=== PATIENT | male | born 1945 | race Caucasian/White ===

== ENCOUNTER → 2020-09-13 12:30 | Outpatient (BNVA) | payer OTHER, SELFPAY | PROVIDERS: Visit Provider Orthopaedic Surgery | DX: M19.011 Primary osteoarthritis, right shoulder (principal) | CPT/HCPCS: 99212 ==

== ENCOUNTER → 2021-01-21 10:11 | Outpatient (BNVA) | payer OTHER, SELFPAY | PROVIDERS: Visit Provider Physician Assistant | DX: M19.011 Primary osteoarthritis, right shoulder (principal) | CPT/HCPCS: 99212 ==

== ENCOUNTER 2021-01-26 05:55 | Day surgery (SDC) | payer OTHER, SELFPAY ==
--- NOTE | 2021-01-18 | ECG_ITS ---
Test Reason : preop Blood Pressure : / mmHG Vent. Rate : 059 BPM Atrial Rate : 059 BPM P-R Int : 296 ms QRS Dur : 110 ms QT Int : 436 ms P-R-T Axes : 032 -56 007 degrees QTc Int : 431 ms Sinus bradycardia with 1st degree A-V block Left anterior fascicular block Poor R wave progression Abnormal ECG When compared with ECG of 26-MAR-2019 12:36, No significant change was found Referred By: Unique Smith Electronically Signed By:OTYIN FRANCISCO MD
[2021-01-18 09:49] VITALS: BMI 30.2
[2021-01-18 11:50] VITALS: BP 129/87; PULSE 59; RESP 16; O2SAT 94
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
[2021-01-18 13:21] LABS: Hematocrit 50.7 % (42.0-52.0); Hemoglobin 16.3 g/dl (14.0-18.0); Mean Corpuscular HGB Conc 32.1 g/dl (31.0-36.0); Mean Corpuscular Volume 96.4 fL (80.0-98.0); Mean Platelet Volume 9.1 fL (9.4-12.4); Platelet Count 244 X10*3/uL (160-400); Red Blood Count 5.26 X10*6/uL (4.60-5.80); Red Cell Distribution Width 13.2 % (11.0-16.0)
[2021-01-18 14:17] LABS: Anion Gap 13 (12-20); Blood Urea Nitrogen 21 mg/dL (9-16); Calcium 9.9 mg/dL (8.4-10.2); Carbon Dioxide 29 mmol/L (22-29); Chloride 106 mmol/L (96-108); Creatinine Clr Calc Pharmacy 53.2; Estimated Glomerular Filt Rate 51; Glucose Random 106 mg/dL (60-115); Potassium 4.8 mmol/L (3.3-5.1); Sodium 143 mmol/L (135-145)
[2021-01-26] VITALS (40 sets, daily range): BP systolic 95–151; BP diastolic 49–81; PULSE 58–89; RESP 13–35; TEMP 36–36.8; O2SAT 72–96
--- NOTE | ~2021-01-26 | XR_ITS ---
EXAMINATION: XR CHEST CLINICAL INFORMATION: Low oxygen saturation COMPARISON: None TECHNIQUE: Frontal view of the chest was obtained. FINDINGS: The cardiac silhouette is upper normal in size. Hilar and mediastinal contours are unremarkable. There is elevation of the right hemidiaphragm. The lungs are clear. There is no pleural effusion or pneumothorax. There are degenerative changes of the spine. XR/XR chest 1V IMPRESSION: Upper normal-size cardiac silhouette. Elevated right hemidiaphragm.
--- NOTE | ~2021-01-26 | XR_ITS ---
EXAMINATION: XR CHEST CLINICAL INFORMATION: Low saturation COMPARISON: Earlier on same day TECHNIQUE: AP portable view of the chest was obtained. FINDINGS: There is elevation of the right hemidiaphragm. There is no evidence of acute parenchymal disease, pneumothorax, or pleural effusion. Heart upper limits of normal in size. No evidence of pulmonary edema. XR/XR chest 1V IMPRESSION: Elevated right hemidiaphragm. No acute disease.
[2021-01-26] MEDS: Lactated Ringers 1,000 ML 100 ML IVCONT (06:35)
--- NOTE | 2021-01-26 10:16 | P.BOP_ITS ---
Brief Operative Note Date of Service: 01/26/21 Pre-op diagnosis: right shoulder labral tear and sub acromial bursitis Post-op diagnosis: other (1) subscapularis tear 2) supraspinatus tear 3) sub acromial bursitis 4) labral tear 5) biceps tendon rupture 6) glenouhumeral OA) Procedure: Arthroscopic subscapularis repair Arthroscopic supraspinatus tear Circumferential labral debridement Sub acromial impingement Implants: Carpenter and nephew 4.75 double loaded suture anchor x1 and 5.0 knotless x2 Surgeon: Luis A Demarco MD Anesthesia: GETA and regional Was an Boring Mill Operator used for this Procedure?: No Estimated blood loss (mL): 20 IV fluids (mL): 1,000 Pathology: none sent Condition: stable Disposition: PACU
--- NOTE | 2021-01-26 10:16 | MHC.SHP ---
Pre-Procedural Eval Section A Date of Service: 01/26/21 The patient is an INPATIENT: No Changes since office visit: Yes Patient answered all questions; No Cold of Flu in the past 2 weeks, No New Medical Problems and No Changes in Medication The History & Physical has been completed within 30 days and I have reviewed it.: Yes Section B Chief Complaint: Loose Body in Right Shoulder Allergies: Allergies Allergy/AdvReac Type Severity Reaction Status Date / Time SEASONAL ALLERGIES Allergy Unknown RUNNY NOSE Uncoded 01/21/21 10:25 Plan I have reviewed the history and physical and performed a pertinent physical examination on my patient. No changes have occurred unless specified.
--- NOTE | 2021-01-26 10:25 | P.OP_ITS ---
Operative Note Operative Note Date of Service: 01/26/21 Narrative: Pre-op diagnosis: right shoulder labral tear and sub acromial bursitis Post-op diagnosis: other (1) subscapularis tear 2) supraspinatus tear 3) sub acromial bursitis 4) labral tear 5) biceps tendon rupture 6) glenouhumeral OA) Procedure: Arthroscopic subscapularis repair Arthroscopic supraspinatus tear Circumferential labral debridement Sub acromial impingement Implants: Mares and nephew 4.75 double loaded suture anchor x1 and 5.0 knotless x2 Surgeon: Luis A Demarco MD Anesthesia: GETA and regional Was an Senior Administrator Support used for this Procedure?: No Estimated blood loss (mL): 20 IV fluids (mL): 1,000 Pathology: none sent Condition: stable Disposition: PACU Procedure in detail: Patient was brought to the operating room and placed the the beach chair position. All bony prominences were well padded and the limb was prepped and draped in standard sterile fashion. A time out was called to identify proper site, proper procedure and proper surgeon. IV antibiotics per weight were administered. I began by making a posterolateral stab incision with a 15 blade. A blunt trochar was placed into the glenohumeral joint and I insufflated the joint with saline and a 30 degree arthroscope was placed. I established an outs lauro- in anterior portal just distal to the torn biceps tendon. I then began my inspection of the glenohumeral joint. There were grade 4 changes of the anterior 30% of the glenoid and grade 3 and 4 changes of the humeral head. The biceps was ruptured and there was scattered debris and calcified tissue including the labrrum .I circumeferentially debrided the labrum and examined the subscapularis which was about 75% torn at it humeral insertion. I debrided the attachment site and placed a fiber tape and a looped suture through the mobile torn portion of the subscap. I then dunked this into the inertion site with a 5.0 knotless mares and nephew anchor with the arm internally rotated. I then removed the trochar and entered the subacromial space. A direct lateral portal was then established and I performed a bursectomy. There was florid bursal tissue and diminished subacromial space. There was a contained small full thickness defect of the supraspinatus insertion. An additional lateral portal was made. I debrided the bone down to bleeding bone with a flex and then placed a 4.75 medial row double loaded anchor and brought a limb of each suture through the cuff with a Scorpion device. These limbs were then tied to a lateral 5.o knotless anchor. I had excellent reproduction of the normal anatomy. I then performed a 6 mm sub acromial decompression. Once I was satisfied with the repa ir final images were captured and I removed all instrumentation. Portals were closed with nylon. Patient was placed in an abduction sling, extubated and brought to the recovery room in stable condition. There were no known complications.
[2021-01-26] MEDS: oxyCODONE HCl Immed Release 5 MG TABLET PO (12:59)
--- NOTE | 2021-01-26 17:07 | PC.NURSE ---
dr. ledesma at bedside to evaluate patient. made awre patient continues to clear throat, able to safely swallow. pulse ox variable 87-90% on 4l nc, 13 liters shovel mask. utilized incentive spirometer good effort educated in use of I/S 1000 ml attained x3
--- NOTE | 2021-01-26 17:31 | PC.NURSE ---
1730 dr. turner at bedside to evaluate patient respiratory status. aware pulse ox 86-88% while dozing in naps. hx chelsea on 15l shovel mask and 4l nasal cannula. nsr 70's. dr. turner has reviewed patient status with dr. esteves. no plan for bipap or icu at this time. call to RT for ventimask placement
--- NOTE | 2021-01-26 17:41 | PC.NURSE ---
RT at bedside to place patient on ventimask 55% TRIAL. DR. ALVARADO AT BEDSIDE DISCUSSING WITH PATIENT STATUS AND RESPRATORY STATUS.
[2021-01-26 18:13] LABS: ABG Base Excess 0.6 mmol/L; ABG HCO3 25 mmol/L (22-26); ABG pCO2 41 mmHg (32-45); ABG pH 7.39 (7.35-7.45); ABG pO2 44 mmHg (83-108)
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
[2021-01-26 19:41] LABS: COVID-19 Test Negative (Negative)
[2021-01-26] MEDS: Atorvastatin Calcium 20 MG TABLET PO (21:59)
[2021-01-26] MEDS: Acetaminophen 325 MG TABLET 650 MG PO (22:01)
[2021-01-27] VITALS (14 sets, daily range): BP systolic 108–132; BP diastolic 50–76; PULSE 63–79; RESP 13–69; TEMP 36.4–37; O2SAT 90–96
[2021-01-27] MEDS: oxyCODONE HCl Immed Release 5 MG TABLET PO (02:08)
[2021-01-27 05:44] LABS: ABG Refer to POC result
[2021-01-27 05:59] LABS: Albumin Level 3.8 g/dL (3.5-5.0)
[2021-01-27] MEDS: lisinopriL 20 MG TABLET PO (08:33)
[2021-01-27] MEDS: Clopidogrel Bisulfate 75 MG TABLET PO (08:34)
[2021-01-27 08:37] LABS: MANUAL DIFF FLAG NO
[2021-01-27 08:38] LABS: VBG Base Excess 5.2 mmol/L; VBG HCO3 31 mmol/L (22-26); VBG pCO2 53 mmHg; VBG pH 7.38 (7.32-7.43); VBG pO2 40 mmHg
[2021-01-27 08:39] LABS: Venous Blood Gas Refer to POC result
[2021-01-27 08:41] LABS: Basophils Percent Auto 0.4 % (0-2); Eosinophils Percent Auto 0.1 % (0-4); Hematocrit 43.5 % (42.0-52.0); Hemoglobin 14.1 g/dl (14.0-18.0); Imm Gran Abs Auto 0.03 X10*3/uL (0.00-0.03); Imm Gran Pct Auto 0.3 % (0.0-0.4); Lymphocytes Absolute Auto 0.7 X10*3/uL (1.2-4.9); Lymphocytes Percent Auto 8.1 % (20-40); Mean Corpuscular HGB Conc 32.4 g/dl (31.0-36.0); Mean Corpuscular Hemoglobin 31.6 pg (27.0-33.0); Mean Corpuscular Volume 97.5 fL (80.0-98.0); Mean Platelet Volume 9.2 fL (9.4-12.4); Monocytes Absolute Auto 1.3 X10*3/uL (0.1-1.2); Monocytes Percent Auto 14.7 % (2-11); Neutrophils Absolute Auto 6.8 x10*3/uL (2.0-8.3); Neutrophils Percent Auto 76.4 % (45-73); Platelet Count 178 X10*3/uL (160-400); Red Blood Count 4.46 X10*6/uL (4.60-5.80); Red Cell Distribution Width 13.2 % (11.0-16.0)
--- NOTE | 2021-01-27 08:56 | P.DS_ITS ---
DS: Providers Provider Date of Service: 01/31/21 Date of admission: 01/26/21 17:17 Primary care physician: Aundrea Arredondo MD DS: Diagnosis Discharge Diagnosis (1) Acute respiratory failure with hypoxia: (2) Osteoarthritis of right shoulder: Status: Acute (3) SUNDEEP (obstructive sleep apnea): DS: Summary Hospital Course Hospital Course: 75-year-old gentleman status post elective shoulder debridement on 01/26/2021 requiring anterior scalene block with prolonged anesthetic effect postprocedure resulting in poor diaphragmatic function requiring monitoring in the intensive care unit with BiPAP support overnight. Patient with complete resolution of his diaphragmatic dysfunction overnight, titrated off BiPAP and to room air. Evaluated by Orthopedic surgery provide in the morning and discharged home. Time Spent with Patient Time attestation: Total time spent providing and/or coordinating discharge services: Discharge coordination time: Less than 30 minutes Quality: Stroke Does the patient have a stroke diagnosis?: No Physical Exam Vital Signs: Vital Signs: Last Vital Signs Temp 97.5 F 01/27/21 08:00 Pulse 74 01/27/21 08:33 Resp 17 01/27/21 08:00 BP 131/76 01/27/21 08:33 Pulse Ox 94 01/27/21 08:00 Oxygen Flow Rate 15 01/26/21 18:10 BMI result Body Mass Index 30.2 Const: General: cooperative, healthy appearing and no acute distress Resp: Effort & Inspection: normal respiratory effort and able to speak in complete sentences Cardio: Rate: regular rate Peripheral pulses: Peripheral pulses 2+ throughout GI: Palpation (GI): Soft to palpation Skin: General skin exam: no rashes or lesions noted Extrem: Other: right shoulder bandage c/d/i. sling intact. Radial nerve fxn intact. DS: Data Data Completed and Pending Labs on day of discharge: Laboratory Results - last 24 hr 01/26/21 01/26/21 01/27/21 18:07 19:18 05:17 WBC RBC Hgb Hct MCV MCH MCHC RDW Plt Count MPV Immature Gran % (Auto) Neut % (Auto) Lymph % (Auto) [place] % (Auto) Eos % (Auto) Baso % (Auto) Lymph # (Auto) [place] # (Auto) Eos # (Auto) Baso # (Auto) Abs Immat Gran (auto) Absolute Neuts (auto) Absolute Nucleated RBC Nucleated RBC % (auto) O2 Saturation 69.0 ABG pH at Pt Temp 7.39 ABG pCO2 at Pt Temp 41 ABG pO2 at Pt Temp 44 L* ABG HCO3 25 ABG Base Excess (Actual) 0.6 VBG pH VBG pCO2 VBG pO2 VBG HCO3 VBG O2 Saturation VBG Base Excess Albumin 3.8 COVID-19 ([facility]ORY) Negative COVID-19 Clin Com See Note 01/27/21 01/27/21 08:29 08:33 WBC 9.0 RBC 4.46 L Hgb 14.1 Hct 43.5 MCV 97.5 MCH 31.6 MCHC 32.4 RDW 13.2 Plt Count 178 D MPV 9.2 L Immature Gran % (Auto) 0.3 Neut % (Auto) 76.4 H Lymph % (Auto) 8.[address] % (Auto) 14.7 H Eos % (Auto) 0.1 Baso % (Auto) 0.4 Lymph # (Auto) 0.[address] [place] # (Auto) 1.3 H Eos # (Auto) 0.0 Baso # (Auto) 0.0 Abs Immat Gran (auto) 0.03 Absolute Neuts (auto) 6.8 Absolute Nucleated RBC 0.000 Nucleated RBC % (auto) 0.0 O2 Saturation ABG pH at Pt Temp ABG pCO2 at Pt Temp ABG pO2 at Pt Temp ABG HCO3 ABG Base Excess (Actual) VBG pH 7.38 VBG pCO2 53 VBG pO2 40 VBG HCO3 31 H VBG O2 Saturation 62.0 VBG Base Excess 5.2 Albumin COVID-19 ([facility]) COVID-19 Clin Com Discharge Plan Discharge Patient Disposition: Home, Self-Care Referrals: Bobbi Antonio PA-C [Physician Fiber Optic Central Office Installer] - 1 Week (PT 01/31/21 at 2:00pm Post op in the ortho office 02/07/21 at 9:30am ) Aundrea Arredondo MD [Primary Care Provider] - 1 Week Discharge Medications: Continued lisinopril 20 mg Tablet 20 mg PO DAILY RF: 0 clopidogrel 75 mg Tablet 75 mg PO DAILY RF: 0 simvastatin 40 mg Tablet 40 mg PO DAILY RF: 0 Advil PM 200-38 mg Tablet 1 cap PO BEDTIME PRN (Reason: Pain) RF: 0 Discharge Orders: Discharge Order (Routine); Ordered 01/27/21 Ordered By: Kuldip Rushing Patient Instructions: Rotator Cuff Tear Repair (DC), Rotator Cuff Tear Repair (GEN) Activity Restrictions/Additional Instructions: Wear sling at all times, including sleeping-OK to remove for pendulum exercises throughout the day No lifting-OK to move arm at elbow and wrist Do not bathe or shower--OK to remove bandage after day 3, cover with bandaids. Take Percocet 5/325mg tabs 1 tab by mouth every 4-6 hours as needed Call [facility] with any questions or concerns. Follow up with orthopedics in 7-10 days post op Discharge Date/Time: 01/27/21 10:40
[2021-01-27 09:23] LABS: Anion Gap 12 (12-20); Blood Urea Nitrogen 21 mg/dL (9-16); Calcium 9.1 mg/dL (8.4-10.2); Carbon Dioxide 29 mmol/L (22-29); Chloride 106 mmol/L (96-108); Creatinine Clr Calc Pharmacy 57.4; Estimated Glomerular Filt Rate 55; Glucose Random 139 mg/dL (60-115); Magnesium 1.8 mg/dL (1.6-2.6); Phosphorus 2.4 mg/dL (2.7-4.5); Potassium 4.5 mmol/L (3.3-5.1); Sodium 142 mmol/L (135-145)
--- NOTE | 2021-01-27 10:05 | MHC.CM.PN ---
Met with pt to discuss d/c planning: pt resides with his s.o., drives, has no services and does not use any adaptive equipment. Pt states his medical care is delivered through the [facility]. Pt states he also has two brothers that can assist him and who will transport pt home today. HCP at home: No additional service needs are identified at this time.
--- NOTE | 2021-01-27 13:24 | PC.NURSE ---
PT NOW STABLE AND OFF OXYGEN. PT DISCHARGED, ORTHO PROVIDED DISCHARGE INSTRUCTIONS/TEACHING AND PROVIDED PRESCRIPTIONS. RN PROVIDED DISCHARGE TEACHING AND PAPERWORK. PT RECEIVED ALL PAPERWORK, BELONGINGS, AND WAS ESCORTED OFF UNIT BY TECH AND BROTHER VIA WHEELCHAIR.
--- NOTE | 2021-01-27 13:36 | HO.POSTANES ---
Post Anesthesia Evaluation Post Anesthesia Evaluation Vital Signs: Vital Signs Temp Pulse Resp BP Pulse Ox 01/27/21 10:00 78 15 132/68 90 L 01/27/21 09:00 67 21 H 125/65 93 01/27/21 08:33 74 131/76 01/27/21 08:00 97.5 F 68 17 131/76 94 01/27/21 07:00 68 19 108/70 94 01/27/21 05:59 69 H 93 01/27/21 05:53 96 01/27/21 05:45 67 16 119/68 95 01/27/21 05:00 71 16 121/61 92 01/27/21 04:00 97.8 F 65 16 118/50 L 91 L 01/27/21 03:00 64 13 120/63 94 01/27/21 02:00 79 17 92 Anesthesia: Nerve Block and General Endotracheal-GETA Mental Status: Awake Pain Control: Satisfactory Nausea/Vomiting: None Hydration: Adequate Anesthesia-Related Issues: No Anes. 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 Patient improving as local anesthesia is nasir off.)
--- NOTE | 2021-01-27 14:55 | P.DS_ITS ---
DS: Providers Provider Date of Service: 01/27/21 Primary care physician: Aundrea Arredondo MD DS: Diagnosis Discharge Diagnosis (1) Acute respiratory failure with hypoxia: Status: Acute (2) Osteoarthritis of right shoulder: Status: Acute (3) SUNDEEP (obstructive sleep apnea): Status: Acute DS: Summary Hospital Course Hospital Course: 75-year-old gentleman status post elective shoulder debridement on 01/26/2021 requiring anterior scalene block with prolonged anesthetic effect postprocedure resulting in poor diaphragmatic function requiring monitoring in the intensive care unit with BiPAP support overnight. Patient with complete resolution of his diaphragmatic dysfunction overnight, titrated off BiPAP and to room air. Evaluated by Orthopedic surgery provide in the morning and discharged home. Status at Discharge Functional status at discharge: independent ambulation Time Spent with Patient Time attestation: Total time spent providing and/or coordinating discharge services: Discharge coordination time: Less than 30 minutes Quality: Stroke Does the patient have a stroke diagnosis?: No Physical Exam Vital Signs: Vital Signs: Last Vital Signs Temp 97.5 F 01/27/21 08:00 Pulse 78 01/27/21 10:00 Resp 15 01/27/21 10:00 BP 132/68 01/27/21 10:00 Pulse Ox 90 L 01/27/21 10:00 Oxygen Flow Rate 15 01/26/21 18:10 BMI result Body Mass Index 30.2 Const: General: no acute distress, alert and awake Eyes: Sclerae: sclerae normal EOM: EOMs intact bilaterally Neck: Neck: Yes no lymphadenopathy, Yes trachea midline and Yes supple Resp: Effort & Inspection: normal respiratory effort and no respiratory distress Auscultation: clear to auscultation bilaterally Cardio: Rate: regular rate Rhythm: regular rhythm Heart sounds: no gallops, no murmurs and no rubs GI: Palpation (GI): Soft to palpation and Other GI palpation findings present ( Nontender) Auscultation: normal bowel sounds Extrem: General: Yes no pedal edema, No clubbing, No cyanosis and Yes other ( right shoulder with surgical dressing and immobilized) DS: Data Data Completed and Pending Labs on day of discharge: Laboratory Results - last 24 hr 01/26/21 01/26/21 01/27/21 18:07 19:18 05:17 WBC RBC Hgb Hct MCV MCH MCHC RDW Plt Count MPV Immature Gran % (Auto) Neut % (Auto) Lymph % (Auto) [place] % (Auto) Eos % (Auto) Baso % (Auto) Lymph # (Auto) [place] # (Auto) Eos # (Auto) Baso # (Auto) Abs Immat Gran (auto) Absolute Neuts (auto) Absolute Nucleated RBC Nucleated RBC % (auto) O2 Saturation 69.0 ABG pH at Pt Temp 7.39 ABG pCO2 at Pt Temp 41 ABG pO2 at Pt Temp 44 L* ABG HCO3 25 ABG Base Excess (Actual) 0.6 VBG pH VBG pCO2 VBG pO2 VBG HCO3 VBG O2 Saturation VBG Base Excess Sodium Potassium Chloride Carbon Dioxide Anion Gap BUN Creatinine Estim Creat Clear Calc Estimated GFR Random Glucose Calcium Phosphorus Magnesium Albumin 3.8 COVID-19 ([facility]) Negative COVID-19 Clin Com See Note 01/27/21 01/27/21 01/27/21 08:29 08:29 08:33 WBC 9.0 RBC 4.46 L Hgb 14.1 Hct 43.5 MCV 97.5 MCH 31.6 MCHC 32.4 RDW 13.2 Plt Count 178 D MPV 9.2 L Immature Gran % (Auto) 0.3 Neut % (Auto) 76.4 H Lymph % (Auto) 8.1 L [place] % (Auto) 14.7 H Eos % (Auto) 0.1 Baso % (Auto) 0.4 Lymph # (Auto) 0.7 L [place] # (Auto) 1.3 H Eos # (Auto) 0.0 Baso # (Auto) 0.0 Abs Immat Gran (auto) 0.03 Absolute Neuts (auto) 6.8 Absolute Nucleated RBC 0.000 Nucleated RBC % (auto) 0.0 O2 Saturation ABG pH at Pt Temp ABG pCO2 at Pt Temp ABG pO2 at Pt Temp ABG HCO3 ABG Base Excess (Actual) VBG pH 7.38 VBG pCO2 53 VBG pO2 40 VBG HCO3 31 H VBG O2 Saturation 62.0 VBG Base Excess 5.2 Sodium 142 Potassium 4.5 Chloride 106 Carbon Dioxide 29 Anion Gap 12 BUN 21 H Creatinine 1.27 Estim Creat Clear Calc 57.4 Estimated GFR 55 Random Glucose 139 H Calcium 9.1 D Phosphorus 2.4 L Magnesium 1.8 Albumin COVID-19 ([facility]) COVID-19 Clin Com Discharge Plan Discharge Patient Disposition: Home, Self-Care Referrals: Bobbi Antonio PA-C [Physician Plant And Instrument Engineer] - 1 Week (PT 01/31/21 at 2:00pm Post op in the ortho office 02/07/21 at 9:30am ) Aundrea Arredondo MD [Primary Care Provider] - 1 Week Discharge Medications: Continued lisinopril 20 mg Tablet 20 mg PO DAILY RF: 0 clopidogrel 75 mg Tablet 75 mg PO DAILY RF: 0 simvastatin 40 mg Tablet 40 mg PO DAILY RF: 0 Advil PM 200-38 mg Tablet 1 cap PO BEDTIME PRN (Reason: Pain) RF: 0 Discharge Orders: Discharge Order (Routine); Ordered 01/27/21 Ordered By: Kuldip Rushing Patient Instructions: Rotator Cuff Tear Repair (DC), Rotator Cuff Tear Repair (GEN) Activity Restrictions/Additional Instructions: Wear sling at all times, including sleeping-OK to remove for pendulum exercises throughout the day No lifting-OK to move arm at elbow and wrist Do not bathe or shower--OK to remove bandage after day 3, cover with bandaids. Take Percocet 5/325mg tabs 1 tab by mouth every 4-6 hours as needed Call [facility] orthopedics with any questions or concerns. Follow up with orthopedics in 7-10 days post op Discharge Date/Time: 01/27/21 10:40
== END 2021-01-27 10:40 | disposition home or self-care (01) ==
LOC: HO.SSS 10:23 → HO.ICU 01-27 08:56
PROVIDERS: Anesthesiology; Nurse Practitioner; Registered Nurse Community Health; PCP Internal Medicine; Visit Provider Orthopaedic Surgery
PROC: (CPT 29805; principal; 2021-01-26 07:30)
DX: S43.491A Other sprain of right shoulder joint, initial encounter (principal); S46.011A Strain of muscle(s) and tendon(s) of the rotator cuff of right shoulder, initial encounter; X58.XXXA Exposure to other specified factors, initial encounter; M75.51 Bursitis of right shoulder; Y93.9 Activity, unspecified; Y92.9 Unspecified place or not applicable; Y99.9 Unspecified external cause status; M19.011 Primary osteoarthritis, right shoulder; G47.33 Obstructive sleep apnea (adult) (pediatric); J95.821 Acute postprocedural respiratory failure; Y83.8 Other surgical procedures as the cause of abnormal reaction of the patient, or of later complication, without mention of misadventure at the time of the procedure; Y92.238 Other place in hospital as the place of occurrence of the external cause; J30.2 Other seasonal allergic rhinitis; I10 Essential (primary) hypertension; E78.00 Pure hypercholesterolemia, unspecified; H81.10 Benign paroxysmal vertigo, unspecified ear; Z20.822 Contact with and (suspected) exposure to COVID-19; Z86.73 Personal history of transient ischemic attack (TIA), and cerebral infarction without residual deficits; Z87.891 Personal history of nicotine dependence; Z79.899 Other long term (current) drug therapy; Z79.01 Long term (current) use of anticoagulants
CPT/HCPCS: 29827; 29826; 29822; 36415; 71045; 80048; 82040; 82803; 83735; 84100; 85025; 85027; 87635; 93005; 94660; 94799; C1713; J0171; J0330; J0690; J2250; J2370; J2405; J3010

== ENCOUNTER → 2021-02-07 08:58 | Outpatient (BNVA) | payer OTHER, SELFPAY | PROVIDERS: PCP Internal Medicine; Visit Provider Physician Assistant | DX: Z98.890 Other specified postprocedural states (principal) | CPT/HCPCS: 99212 ==

== ENCOUNTER 2021-02-16 15:00 | Outpatient (RCR) | payer OTHER, SELFPAY ==
--- NOTE | 2021-02-01 10:54 | MHC.PT.EP ---
[facility] [place] Office [place] Office [place] Office [address] Sarah Boyer [address] [facility] [phone] F: [phone] F: [phone] F: [phone] F: [phone] Physical Therapy Plan of Care Date of Evaluation: Date of Surgery: 01/26/21 Diagnosis: Arthroscopic subscapularis repair Arthroscopic supraspinatus tear Circumferential labral debridement Sub acromial impingement (with subacromial decompression) Assessment: Pt is a 75yo M s/p R RTC repair along with subscap repair and subacromial decompression with Dr. Demarco on 01/26/21. He was admitted to the ICU for acute respiratory failure with hypoxia after procedure and was D/C home 1 day later. He denies any complications since being D/C home. He presents today with abduction pillow brace. He presents with current impairments in pain, decreased ROM, decreased strength, and impaired posture. He is a good candidate for skilled PT services to address current impairments per protocol each week. He will benefit from skilled PT services 2x/week for 16 weeks in order to progress per protocol in order to facilitate return to PLOF. Frequency and Duration: The patient will be seen 2x/week for 16 weeks Short Term Goals: Pt will be I with donning/doffing R abduction pillow brace Pt will be I with HEP to promote self management of symptoms Pt will demonstrate increased R shoulder flexion PROM to 115 deg 2-3 weeks per protocol Pt will demonstrate increased R shoulder ER at 45 deg ABD scapular plane to 0 degrees at 2-3 weeks per protocol Pt will achieve R shoulder ER at 45 degrees abduction to 30-40 degrees in 5-6 weeks per protocol Product Safety Technician Goals: Pt will demonstrate good postural awareness 80% of 3 consecutive PT sessions for decreased risk of re-injury in 6-8 weeks Pt will achieve R shoulder flexion to 180 degrees in 8-10 weeks per protocol Pt will achieve ER at 90 degrees abduction to 75-80 degrees in 8-10 weeks per protocol Pt will demonstrate R shoulder and periscapular strength at least 4/5 in 8-12 weeks per protocol to assist with functional tasks Pt will demonstrate full, non-painful ROM throughout R shoulder to promote functional use of RUE without compensation within 12-16 weeks per protocol Treatment Plan: Modalities to reduce pain, spasms and effusion. Manual therapy to restore motion and function. Therapeutic exercise to improve strength and flexibility. Neuromuscular re-education for posture and balance. Therapeutic activities to return to functional activities of daily living. Electronically signed by: Faith Malone, PT, DPT Please sign and return to therapist. Thank you for your referral.
--- NOTE | 2021-03-01 17:41 | MHC.PT.DC ---
[facility] [place] Office [place] Office [place] Office [address] Sarah Boyer [address] [phone] F: [phone] F: [phone] F: [phone] F: [phone] Physical Therapy Discharge Report Diagnosis: Arthroscopic subscapularis repair Arthroscopic supraspinatus tear Circumferential labral debridement Sub acromial impingement (with subacromial decompression) Date of Surgery: 01/26/21 Date of Evaluation: 01/31/21 Date of Discharge: 03/01/21 Treatments to Date: 5 Cancellations to Date: 3 No Shows to Date: 0 Discharge Status: Recommend MD Follow-up Discharge Summary: Pt is a 75yo M s/p R RTC repair along with subscap repair and subacromial decompression with Dr. Demarco on 01/26/21. Pts last attended PT visit was 02/16/21. Pt has cancelled appointments since last attended visit as he has been hospitalized at [facility]. This therapist called patient yesterday, 02/28/21 and pt reported he was still at [facility] and did not know when he was being D/C'd from the hospital. I discussed with pt due to his change in medical status he is being D/C from PT at this time and will need clearance from MD prior to returning to PT due to change in medical status and pt verbalized understanding. Pt current level of function unknown at this time. Electronically signed by: Faith Malone, PT, DPT Please sign and return to therapist. Thank you for your referral.
== END 2021-03-01 17:39 | disposition home or self-care (01) ==
LOC: HO.PT 15:00
PROVIDERS: Visit Provider Physician Assistant
DX: M19.011 Primary osteoarthritis, right shoulder (principal)
CPT/HCPCS: 97110; 97140; 97162

== ENCOUNTER → 2021-05-09 11:14 | Outpatient (BNVA) | payer OTHER, SELFPAY | PROVIDERS: PCP Internal Medicine; Visit Provider Physician Assistant | DX: Z47.89 Encounter for other orthopedic aftercare (principal); Z98.890 Other specified postprocedural states | CPT/HCPCS: 99212 ==